=== PATIENT | male | born 1980 | race Caucasian/White ===

== ENCOUNTER 2017-02-17 23:32 | Emergency (ER) | payer BC ==
[~2017-02-17] VITALS: Ht 185.4 cm; Wt 93.0 kg
--- NOTE | ~2017-02-17 | CR170 ---
[facility] A Service of [facility] & [facility] RADIOLOGY TEXT RESULTS PATIENT: LETTY CHAO LOCATION: SED : 80 UNIT #: [id number] AGE: [address]: Marina Redding MD SEX: M ORDER DR: [id number] [place] [id number] E MR#: [id number] Acc #: [id number] NAME: LETTY CHAO. : 1980 SEX: M STUDY DATE/TIME: 02/17/2017 23:57 UNIT: SED ROOM: STUDY DESCRIPTION: CR Knee 2 Views Rt Attending Physician: Marina Redding M.D. Ordering Physician: Marina Redding M.D. Primary Care Physician: Marguerite Smith M.D. MEDICAL IMAGING REPORT This report is preliminary unless electronic signature is present. EXAM Right knee, 02/17, at 23:57. INDICATIONS Knee pain and swelling that started at 09:30 tonight after hitting knee on a wagon at work. FINDINGS Two views of the right knee were obtained. No fracture or malalignment is seen. There is no joint effusion. There is some prepatellar soft tissue swelling. IMPRESSION Prepatellar soft tissue swelling, otherwise, negative right knee. Dictated by... Filemon Son Jr., M.D. THIS IS AN ELECTRONICALLY VERIFIED REPORT Filemon Son Jr., M.D. at 02/19/2017 4:14 AM ALEJANDRO/cameron TD: 02/18/2017 23:01 JOB #: [id number] MEDICAL IMAGING REPORT Page 1 of 1
[2017-02-17] MEDS ORDERED: LISINOPRIL20 MG (23:39)
[2017-02-17] MEDS ORDERED: BUSPAR15 M1 (23:39)
[2017-02-17] MEDS ORDERED: CALAN (23:39)
[2017-02-17] MEDS ORDERED: NOVOLOG100 UNITS/ (23:40)
[2017-02-17] MEDS ORDERED: FARXIGA10 MG (23:40)
== END 2017-02-18 00:26 | disposition home or self-care (01) ==
LOC: SED 23:32
DX: S83.91XA Sprain of unspecified site of right knee, initial encounter (principal); E11.9 Type 2 diabetes mellitus without complications; I10 Essential (primary) hypertension; Z79.4 Long term (current) use of insulin; W22.8XXA Striking against or struck by other objects, initial encounter; Y92.69 Other specified industrial and construction area as the place of occurrence of the external cause; Y99.0 Civilian activity done for income or pay
CPT/HCPCS: 29530; 73560; 99283